=== PATIENT | male | born 1975 | race Caucasian/White ===

== ENCOUNTER 2018-04-15 06:37 | Day surgery (SDC) | payer OTHER ==
[~2018-04-15] VITALS: Ht 182.9 cm; Wt 86.4 kg
--- NOTE | ~2018-04-15 | HP ---
PATIENT: ARJUN VALLE MEDICAL RECORD: [id number] ACCOUNT: [id number] [facility] 75 ADMISSION DATE: 04/15/18 PCP: RANDY TAMEZ MD HISTORY AND PHYSICAL EXAMINATION CHIEF COMPLAINT: History of colon polyp. No rectal bleeding. He does have a history of tubular adenoma with low-grade atypia in the rectum. He is here for surveillance endoscopy. The risks, possible complications and alternatives to procedure were explained to the patient. He elects to proceed. PAST MEDICAL AND SURGICAL HISTORY: Asthma, uses an inhaler on a p.r.n. basis; sleep apnea and gastroesophageal reflux. ALLERGIES: BRAZIL NUTS, PEANUTS AND PORK. HOME MEDICINES: Albuterol, Prilosec, Adipex. SOCIAL HISTORY: Nonsmoker. REVIEW OF SYSTEMS: No angina, myocardial infarction, coronary artery disease or stents. PHYSICAL EXAMINATION: GENERAL: The patient does not appear acutely ill. He does not appear chronically ill. VITAL SIGNS: Reviewed. EARS: External ears appear normal. EYES: Extraocular movements are intact. NECK: Trachea is midline. CHEST: No intercostal retractions. PULMONARY: Nonlabored and no stridor. IMPRESSION: History of tubular adenoma with low-grade atypia of the rectum. PLAN: Surveillance colonoscopy. TRANSINT:[id number] Voice Confirmation ID: [id number] DOCUMENT ID: [id number] ARIC MIRANDA MD at 2127 CC: [id number] DICTATION DATE: 04/15/18 0936 CLOTH CALENDER: 04/15/18 1001 [facility] 04/15/18 [place] [id number] [place] [id number]
--- NOTE | ~2018-04-15 | OP ---
PATIENT NAME: ARJUN VALLE MEDICAL RECORD: [id number] :75 LOCATION:D.OPS ADMISSION DATE: SURGEON: HARI MIRANDA MD DATE OF OPERATION: 04/15/2018 PREOPERATIVE DIAGNOSES: History of tubular adenoma with low-grade dysplasia of the rectum. POSTOPERATIVE DIAGNOSES: History of tubular adenoma with low-grade dysplasia of rectum with potentially some regrowth within the scar. PROCEDURES: 1. Total colonoscopy to cecum. 2. Hot biopsy of the scar times 1 in an area that may contain a polyp. SURGEON: Hari Miranda MD CLUTCH SPECIALIST: None. BLOOD LOSS: Minimal. ANESTHESIA: IV sedation. COMPLICATIONS: None. The risks, possible complications and alternatives to procedure were explained to the patient. He elects to proceed. ENDOSCOPIC COURSE: The patient was conveyed to endoscopy suite electively on 04/15/2018. IV sedation was induced by the anesthesia staff. The patient was placed in the Ball position. A digital rectal examination was performed. A colonoscope was inserted through the anus. It was easily advanced to the cecum. The prep was inadequate. I slowly withdrew the endoscope. I irrigated and aspirated extensively. The pullback was greater than an 18-minute pullback. A combination of normal imaging and narrow band imaging were utilized. I noted the scar at 15 cm. There was potentially some polypoid regrowth within the scar; however, this was small, only 5-mm x 5-mm and was sessile. I removed this utilizing the hot biopsy technique. A retroflexed view was obtained in the rectum. I then unretroflexed the scope and removed it under direct vision. I will see the patient in my office in 2 to 3 weeks. I will plan for his next colonoscopy to take place in the GI lab, which will be a surveillance colonoscopy, in 3 years. TRANSINT:[id number] Voice Confirmation ID: [id number] DOCUMENT ID: [id number] HARI MIRANDA MD at 4816 CC: RANDY TAMEZ [id number] DICTATION DATE: 04/15/18 1019 SENIOR SUSTAINABILITY ADVISOR: 04/15/18 1048 [facility] 04/15/18 [place] [address]
[~2018-04-15 06:37] MED LIST: PRILOSEC20 MG PO; VENTOLIN HFA18 GM INH; VICKS SINEX15 M1 NS
[2018-04-15 07:13] LABS: HEMATOCRIT 46.3 % (42.0-54.0); HEMOGLOBIN 16.1 g/dL (13.5-17.5); MCHC 34.8 g/dL (31.0-37.0); MCV 86.4 fL (80.0-100.0); MEAN PLATELET VOLUME 13.1 fL (7.4-10.4); RBC 5.36 10x6/uL (4.20-6.10); WBC 7.1 10x3/uL (4.8-10.8)
[2018-04-15 08:24] VITALS: BP 108/69; Ht 182.9 cm; Wt 86.4 kg
[2018-04-15] MEDS ORDERED: ADIPEX-P37.5 MG PO (08:33)
== END 2018-04-15 11:15 | disposition home or self-care (01) ==
LOC: D.OPS 06:37
PROVIDERS: Anesthesiology
DX: K62.1 Rectal polyp (principal); J45.909 Unspecified asthma, uncomplicated; G47.30 Sleep apnea, unspecified; K21.9 Gastro-esophageal reflux disease without esophagitis; Z79.899 Other long term (current) drug therapy; Z91.018 Allergy to other foods; Z91.010 Allergy to peanuts; Z01.812 Encounter for preprocedural laboratory examination

== ENCOUNTER → 2019-05-19 14:02 | Outpatient (CLI) | payer OTHER ==
[2018-04-15 08:24] VITALS: BMI 25.8
[~2019-05-19 14:02] MED LIST changes: +ADIPEX-P37.5 MG PO
== END | disposition home or self-care (01) ==
LOC: D.HCCARDIO 14:02
PROVIDERS: ATTEND Internal Medicine Cardiovascular Disease
DX: I20.9 Angina pectoris, unspecified (principal)

== ENCOUNTER → 2019-05-28 12:41 | Outpatient (CLI) | payer OTHER ==
[2018-04-15 08:24] VITALS: BMI 25.8
== END | disposition home or self-care (01) ==
LOC: D.HCCECHO 12:41
PROVIDERS: ATTEND Internal Medicine Cardiovascular Disease
DX: R07.9 Chest pain, unspecified (principal)